=== PATIENT | male | born 1980 | race Caucasian/White ===

== ENCOUNTER 2023-11-08 13:56 | Outpatient (OUT) | payer BC, SELFPAY ==
--- NOTE | 2023-11-08 14:00 | CA_ITS ---
Patient Name: JODI DUONG MR#: [id number] : 1980 Exam Date: 11/08/2023 Ordering Doctor: MRS. JENA ROSARIO [employer] WORKER-C ECHOCARDIOGRAM REPORT PROCEDURE: CA ECHO DOPPLER COMPLETE INDICATIONS: Precordial pain, Septal infarct and right bundle branch block seen on ECG COMPARISON: None. DESCRIPTION: COMPLETE ECHOCARDIOGRAM Real-time transthoracic echocardiography with 2D, M-mode, spectral and color flow Doppler performed. QUALITY: Technical quality was good. 70 , 175#, BSA 1.97 m2, BP 134/82 LEFT VENTRICLE: Normal chamber size. Normal left ventricular wall thickness. LV EF: Global left ventricular systolic function is normal; visually estimated ejection fraction is 60-65%. Abnormal septal motion likely related to underlying bundle branch block. DIASTOLIC: Normal diastolic function. ATRIAL SEPTUM: Visually appears intact. LEFT ATRIUM: Normal chamber size. RIGHT ATRIUM: Normal chamber size. RIGHT VENTRICLE: Normal chamber size. Normal right ventricular systolic function. TRICUSPID VALVE: Normal mobility and thickness. Mild regurgitation. No evidence of pulmonary hypertension.RVSP 21 mmHg MITRAL VALVE: Normal mobility and thickness. No evidence of mitral valve stenosis. There is no mitral annular calcification. Trivial mitral regurgitation. AORTIC VALVE: Normal trileaflet appearance. No visible sclerosis. Normal leaflet mobility. No evidence of aortic valve stenosis. No aortic regurgitation. AORTIC ROOT: Normal diameter and appearance. Ascending aorta is normal in size. PULMONIC VALVE: Normal thickness and mobility. No stenosis. No regurgitation. PERICARDIUM: No evidence of pericardial effusion. IVC: Collapses with inspirations. IVC is normal in size. CONCLUSION: 1. Global left ventricular systolic function is normal; visually estimated ejection fraction is 60 to 65% 2. Normal right ventricular size and systolic function 3. Mild tricuspid regurgitation Adult Echocardiography Procedure Report Left Ventricle LVEDD (3.7 - 5.6 cm): 4.95 cm LVESD (2.2 - 4.0 cm): 3.45 cm LVIVS thickness (0.6 - 1.2 cm): 0.87 cm LVPW thickness (0.5 - 1.0 cm): 0.87 cm e': 0.20 m/s E - e': 3.85 LVOT Max Gradient: 2.66 mm[Hg] LVOT Area (cm2): 0.82 m/s Peak Velocity (LVOT): 0.82 m/s Mean Velocity (LVOT): 0.56 m/s LVOT Diameter 2.38 cm Left Atrium LA Volume Index (2D A2C): 31.48 ml/m2 Left Atrium Systolic Dimension: 3.43 cm Mitral Valve MV E to A Ratio: 1.89 Mitral Valve A-Wave Peak Velocity: 0.41 m/s Mitral Valve E-Wave Peak Velocity: 0.78 m/s Right Ventricle Aorta AO Root Diam: 3.39 cm Ascending Ao Diam: 3.05 cm Aortic Valve AoV Area (Peak Rafael): 2.82 cm2, 2.82 cm2 AoV Area (VTI): 2.56 cm2, 2.56 cm2 Peak Velocity(Antegrade Flow): 1.28 m/s Peak Gradient(Antegrade Flow): 6.57 mm[Hg] Mean Velocity(Antegrade Flow): 0.92 m/s Mean Gradient(Antegrade Flow): 3.79 mm[Hg] Velocity Time Integral: 33.10 cm Tricuspid Valve Peak Velocity (Regurgitant Flow): 2.12 m/s Pulmonic Valve Mean Gradient: 1.64 mm[Hg] Mean Velocity: 0.61 m/s Peak Velocity: 0.81 m/s, 0.87 m/s Peak Gradient: 2.66 mm[Hg], 2.99 mm[Hg] Right Atrium Right Atrium Systolic Pressure: 38.36 ml, 38.36 ml Dictated by: Milton Chandler M.D. on 11/09/2023 at 16:45 Approved by: Milton Chandler M.D. on 11/09/2023 at 16:49
== END 2023-11-08 13:57 | disposition home or self-care (01) ==
LOC: CARD 14:01
PROVIDERS: PCP Internal Medicine; Visit Provider Nurse Practitioner Family
DX: R07.2 Precordial pain (principal); Z82.49 Family history of ischemic heart disease and other diseases of the circulatory system; I45.10 Unspecified right bundle-branch block; I21.29 ST elevation (STEMI) myocardial infarction involving other sites
CPT/HCPCS: 93306; 93356